=== PATIENT | female | born 1995 | race African-American/Black ===

== ENCOUNTER 2018-03-29 18:29 | Emergency (ER) | payer SELFPAY ==
--- NOTE | 2018-03-29 20:24 | EDM.PDOC ---
ED HPI GENERAL MEDICAL PROBLEM - General Chief Complaint: Headache Stated Complaint: HEADACHE NAUSEA Time Seen by Provider: 03/29/18 20:24 - History of Present Illness INITIAL COMMENTS - FREE TEXT/NARRATIVE: 22-year-old female presents emergency room with 2 specific complaints one is abdominal pain and cramping the second is recurrent headaches. The headaches seem to occur late afternoon early evening she gets 1 or 2 a week she has associated photophobia with these occasionally has some nausea with these. This particular headaches been going on all day. At its worst was about a 7 now is down to about a 5 or 6. She's been getting these for quite a long time. The patient gets abdominal pain that is not related to her headaches. The pain is crampy in nature and is associated with some diarrhea. It comes and goes she is not aware of any stresses. The patient has not been worked up for this she does not have regular doctor in the community. 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 [No Known Home Meds] 03/29/18 [History] Past Medical History Neurological History: Reports: Other (See Below) Other Neuro History: headaches Social & Family History - Tobacco Use Smoking Status *Q: Never Smoker - Caffeine Use Caffeine Use: Reports: Coffee, Soda, Tea - Recreational Drug Use Recreational Drug Use: No ED ROS GENERAL - Review of Systems Review Of Systems: See Below Constitutional: Reports: No Symptoms HEENT: Reports: Other (It sounds like she has some eyestrain) Respiratory: Reports: No Symptoms Cardiovascular: Reports: No Symptoms Endocrine: Reports: No Symptoms GI/Abdominal: Reports: Abdominal Pain, Diarrhea, Nausea. Denies: Anorexia, Black Stool, Bloody Stool, Constipation, Decreased Appetite, Difficulty Swallowing, Distension, Vomiting (Nausea is related to her headaches) : Reports: No Symptoms Musculoskeletal: Reports: No Symptoms Skin: Reports: No Symptoms Neurological: Reports: Dizziness, Headache. Denies: Confusion, Numbness Psychiatric: Reports: No Symptoms Hematologic/Lymphatic: Reports: No Symptoms - Physical Exam Exam: See Below Exam Limited By: No Limitations General Appearance: Alert, No Apparent Distress Eye Exam: Bilateral Eye: EOMI, Normal Inspection, PERRL Ears: Normal External Exam, Normal Canal, Hearing Grossly Normal, Normal TMs Nose: Normal Inspection, Normal Mucosa, No Blood Throat/Mouth: Normal Inspection, Normal Lips, Normal Teeth, Normal Gums, Normal Oropharynx, Normal Voice, No Airway Compromise Head Exam: Atraumatic, Normocephalic Neck: Normal Inspection, Supple, Non-Tender, Full Range of Motion Respiratory/Chest: No Respiratory Distress, Lungs Clear, Normal Breath Sounds, No Accessory Muscle Use, Chest Non-Tender Cardiovascular: Normal Peripheral Pulses, Regular Rate, Rhythm, No Edema, No Gallop, No JVD, No Murmur, No Rub GI/Abdominal: Normal Bowel Sounds, Soft, Tender (Vague discomfort no rigidity rebound or guarding). No: No Abnormal Bruit Neuro Exam (Abbreviated): Alert, Oriented, Normal Cognition, Other (Cranial nerves II through XII grossly intact all muscle groups the upper lower extremities recall appropriate bilaterally deep tendon reflexes the brachial radialis are equal and appropriate bilaterally cerebellar testing is entirely within normal limits) Back Exam: Normal Inspection, Full Range of Motion. No: CVA Tenderness (L), CVA Tenderness (R) Extremities: Normal Inspection, Normal Range of Motion Psychiatric: Normal Affect, Normal Mood Skin Exam: Warm, Dry, Intact, Normal Color Course - Vital Signs Last Recorded V/S: Last Vital Signs Temp 37.4 C 03/29/18 18:56 Pulse 123 H 03/29/18 18:56 Resp 20 03/29/18 18:56 BP 143/88 H 03/29/18 18:56 Pulse Ox 100 03/29/18 18:56 - Orders/Labs/Meds Labs: Laboratory Tests 03/29/18 03/29/18 03/29/18 Range/Units 20:55 20:55 21:08 WBC 9.55 (3.98-10.04) K/mm3 RBC 5.48 H (3.98-5.22) M/mm3 Hgb 10.2 L (11.2-15.7) gm/L Hct 34.6 (34.1-44.9) % MCV 63.1 L (79.4-94.8) fl MCH 18.6 L (25.6-32.2) pg MCHC 29.5 L (32.2-35.5) g/dl RDW Std Deviation 44.3 (36.4-46.3) fL Plt Count 628 H (182-369) K/mm3 MPV 9.6 (9.4-12.3) fl Neutrophils % (Manual) 51 (40-60) % Band Neutrophils % 0 (0-10) % Lymphocytes % (Manual) 46 H (20-40) % Atypical Lymphs % 0 % Monocytes % (Manual) 3 (2-10) % Eosinophils % (Manual) 0 L (0.7-5.8) % Basophils % (Manual) 0 L (0.1-1.2) Platelet Estimate Increased Plt Morphology Comment See note Hypochromasia 1+ slight Poikilocytosis 1+ slight Microcytosis 1+ slight Ovalocytes 1+ slight RBC Morph Comment Not Reportable Sodium 139 (136-145) mEq/L Potassium 4.0 (3.5-5.1) mEq/L Chloride 105 (98-107) mEq/L Carbon Dioxide 23 (21-32) mEq/L Anion Gap 15.0 (5-15) BUN 10 (7-18) mg/dL Creatinine 0.7 (0.55-1.02) mg/dL Est Cr Clr Drug Dosing 128.24 mL/min Estimated GFR (MDRD) > 60 (>60) mL/min BUN/Creatinine Ratio 14.3 (14-18) Glucose 88 (74-106) mg/dL Calcium 9.5 (8.5-10.1) mg/dL Total Bilirubin 0.2 (0.2-1.0) mg/dL AST 22 (15-37) U/L ALT 27 (14-59) U/L Alkaline Phosphatase 75 (46-116) U/L Total Protein 9.0 H (6.4-8.2) g/dl Albumin 3.8 (3.4-5.0) g/dl Globulin 5.2 gm/dL Albumin/Globulin Ratio 0.7 L (1-2) Lipase 150 (73-393) U/L Urine Color Yellow (Yellow) Urine Appearance Cloudy H (Clear) Urine pH 7.5 (5.0-8.0) Ur Specific [place] > or = 1.030 (1.005-1.030) Urine Protein Negative (Negative) Urine Glucose (UA) Negative (Negative) Urine Ketones Negative (Negative) Urine Occult Blood Negative (Negative) Urine Nitrite Negative (Negative) Urine Bilirubin Negative (Negative) Urine Urobilinogen 1.0 (0.2-1.0) Ur Leukocyte Esterase Negative (Negative) Urine RBC 0-5 (0-5) /hpf Urine WBC 0-5 (0-5) /hpf Ur Epithelial Cells 5-10 H (0-5) /hpf Amorphous Sediment Many H (NOT SEEN) /hpf Urine Bacteria Few (FEW) /hpf Urine Mucus Few (FEW) /hpf Urine HCG, Qual (NEGATIVE) 03/29/18 Range/Units 21:15 WBC (3.98-10.04) K/mm3 RBC (3.98-5.22) M/mm3 Hgb (11.2-15.7) gm/L Hct (34.1-44.9) % MCV (79.4-94.8) fl MCH (25.6-32.2) pg MCHC (32.2-35.5) g/dl RDW Std Deviation (36.4-46.3) fL Plt Count (182-369) K/mm3 MPV (9.4-12.3) fl Neutrophils % (Manual) (40-60) % Band Neutrophils % (0-10) % Lymphocytes % (Manual) (20-40) % Atypical Lymphs % % Monocytes % (Manual) (2-10) % Eosinophils % (Manual) (0.7-5.8) % Basophils % (Manual) (0.1-1.2) Platelet Estimate Plt Morphology Comment Hypochromasia Poikilocytosis Microcytosis Ovalocytes RBC Morph Comment Sodium (136-145) mEq/L Potassium (3.5-5.1) mEq/L Chloride (98-107) mEq/L Carbon Dioxide (21-32) mEq/L Anion Gap (5-15) BUN (7-18) mg/dL Creatinine (0.55-1.02) mg/dL Est Cr Clr Drug Dosing mL/min Estimated GFR (MDRD) (>60) mL/min BUN/Creatinine Ratio (14-18) Glucose (74-106) mg/dL Calcium (8.5-10.1) mg/dL Total Bilirubin (0.2-1.0) mg/dL AST (15-37) U/L ALT (14-59) U/L Alkaline Phosphatase (46-116) U/L Total Protein (6.4-8.2) g/dl Albumin (3.4-5.0) g/dl Globulin gm/dL Albumin/Globulin Ratio (1-2) Lipase (73-393) U/L Urine Color (Yellow) Urine Appearance (Clear) Urine pH (5.0-8.0) Ur Specific [place] (1.005-1.030) Urine Protein (Negative) Urine Glucose (UA) (Negative) Urine Ketones (Negative) Urine Occult Blood (Negative) Urine Nitrite (Negative) Urine Bilirubin (Negative) Urine Urobilinogen (0.2-1.0) Ur Leukocyte Esterase (Negative) Urine RBC (0-5) /hpf Urine WBC (0-5) /hpf Ur Epithelial Cells (0-5) /hpf Amorphous Sediment (NOT SEEN) /hpf Urine Bacteria (FEW) /hpf Urine Mucus (FEW) /hpf Urine HCG, Qual Negative (NEGATIVE) Meds: Medications Discontinued Medications Generic Name Dose Route Start Last Admin Trade Name Beatrice PRN Reason Stop Dose Admin Diphenhydramine HCl 50 mg 03/29/18 20:41 03/29/18 21:12 Benadryl IVPUSH 03/29/18 20:42 50 mg ONETIME ONE Administration Lactated Ringer's 1,000 mls @ 999 mls/hr 03/29/18 20:41 03/29/18 21:11 Ringers, Lactated IV 03/29/18 21:41 999 mls/hr .BOLUS ONE Administration Ondansetron HCl 4 mg 03/29/18 20:41 03/29/18 21:11 Zofran IVPUSH 03/29/18 20:42 4 mg ONETIME ONE Administration - Re-Assessments/Exams Free Text/Narrative Re-Assessment/Exam: 03/29/18 22:28 Laboratory evaluation shows an anemia but no real significant issues the patient received some IV fluids Benadryl and Zofran her headache is gone. She is advised to go home and get some rest and follow-up with a local physician discussed her anemia her abdominal discomfort that is very suggestive of irritable bowel syndrome with diarrhea, and her headaches Departure - Departure Time of Disposition: 22:28 Disposition: Home, Self-Care 01 Clinical Impression: Generalized headaches, Abdominal discomfort, Anemia - Discharge Information Referrals: PCP,None [Primary Care Provider] - Forms: ED Department Discharge Additional Instructions: Return to the emergency room with any questions problems worsening symptoms. Follow-up and establish with a new doctor here in the community. [phone] your anemia, headaches and abdominal discomfort.
[2018-03-29] MEDS ORDERED: Ondansetron 4 MG/2 ML SDV IVPUSH ONE (20:41)
[2018-03-29] MEDS ORDERED: Lactated Ringers 1,000 ML IV ONE (20:41)
[2018-03-29] MEDS ORDERED: diphenhydrAMINE 50 MG/ML SDV IVPUSH ONE (20:41)
== END 2018-03-29 22:41 | disposition home or self-care (01) ==
LOC: JD.ED 18:29
DX: R51 Headache (principal); R10.9 Unspecified abdominal pain; D64.9 Anemia, unspecified
CPT/HCPCS: 36415; 80053; 81001; 81025; 83690; 85007; 85027; 96361; 96374; 96375; 99284; J1200; J2405; J7120

== ENCOUNTER 2019-03-23 01:12 | Emergency (ER) | payer BC, OTHER ==
[2019-03-23] MEDS ORDERED: Alum Hydrox/Mag Hydrox/Simeth 30 ML, Lidocaine 2% 15 ML PO ONE ×2 (01:57)
--- NOTE | 2019-03-23 01:57 | EDM.PDOC ---
ED HPI GENERAL MEDICAL PROBLEM - General Chief Complaint: Chest Pain Stated Complaint: CHEST PAIN Time Seen by Provider: 03/23/19 01:47 - History of Present Illness INITIAL COMMENTS - FREE TEXT/NARRATIVE: 23-year-old female presents the emergency room with upper abdominal discomfort and chest pain. Patient has discomfort in her upper abdomen in the epigastric area. She also has some discomfort in the lower chest just above this this worsened with deep breathing. She is tried ibuprofen this did not help patient is never had problems like this in the past her past medical history is significant for iron deficiency anemia and she is on iron supplements. Abdomen Pain Score (Numeric/FACES): 7 - Related Data Allergies Allergy/AdvReac Type Severity Reaction Status Date / Time No Known Allergies Allergy Verified 03/23/19 01:25 Home Meds: Home Meds . [No Known Home Meds] 03/29/18 [History] . [No Known Home Meds] 09/30/18 [History] Past Medical History Gastrointestinal History: Reports: Irritable Bowel Syndrome Neurological History: Reports: Migraines, Other (See Below) Other Neuro History: headaches Hematologic History: Reports: Anemia Social & Family History - Tobacco Use Smoking Status *Q: Never Smoker - Caffeine Use Caffeine Use: Reports: None - Recreational Drug Use Recreational Drug Use: No ED ROS GENERAL - Review of Systems Review Of Systems: See Below Constitutional: Reports: No Symptoms HEENT: Reports: No Symptoms Respiratory: Reports: No Symptoms Cardiovascular: Reports: Chest Pain GI/Abdominal: Reports: Abdominal Pain. Denies: Anorexia, Constipation, Diarrhea , Nausea, Vomiting : Reports: No Symptoms Musculoskeletal: Reports: No Symptoms ED EXAM, GENERAL - Physical Exam Exam: See Below Exam Limited By: No Limitations General Appearance: Alert, No Apparent Distress Head: Atraumatic, Normocephalic Neck: Normal Inspection, Supple, Non-Tender, Full Range of Motion Respiratory/Chest: No Respiratory Distress, Lungs Clear, Normal Breath Sounds, Other (To the chest wall does not reveal any discomfort over the sternum lateral chest compression does not make the pain any worse.) Cardiovascular: Regular Rate, Rhythm, No Edema, No Murmur GI/Abdominal: Normal Bowel Sounds, Soft, Other (Significant discomfort with palpation in the epigastric area no other palpable discomfort identified. No rigidity rebound or guarding noted) Course - Vital Signs Last Recorded V/S: Last Vital Signs Temp 36.9 C 03/23/19 01:21 Pulse 92 03/23/19 01:21 Resp 18 03/23/19 01:21 BP 137/90 03/23/19 01:21 Pulse Ox 100 03/23/19 01:21 - Orders/Labs/Meds Orders: Active Orders 24 hr Category Date Time Status EKG Documentation Completion [RC] ASDIRECTED Care 03/23/19 01:38 Active Meds: Medications Discontinued Medications Generic Name Dose Route Start Last Admin Trade Name Beatrice PRN Reason Stop Dose Admin Al Hydroxide/Mg Hydroxide 30 0 ml 03/23/19 01:57 03/23/19 02:11 ml/ Lidocaine HCl 15 ml PO 03/23/19 01:58 45 ml ONETIME ONE Administration Famotidine 20 mg 03/23/19 03:06 Pepcid PO 03/23/19 03:07 ONETIME ONE - Re-Assessments/Exams Free Text/Narrative Re-Assessment/Exam: 03/23/19 03:12 Patient was given a GI cocktail and her pain got significantly better. Discussed different treatment options with the patient and she would like to try famotidine. She will take it twice daily for 1 week then 1 daily. Departure - Departure Time of Disposition: 03:13 Disposition: Home, Self-Care 01 Clinical Impression: Dyspepsia - Discharge Information Referrals: Arlen Saravia MD [Primary Care Provider] - Forms: ED Department Discharge Additional Instructions: Return to the emergency room with any questions problems or worsening symptoms. Go to [facility] and forklift picker some famotidine, this is the generic for Pepcid, take 20 mg twice a day for 1 week then take 1 daily in the morning 30 to 60 minutes before your morning meal. While taking it twice a day also take it 30 to 60 minutes before your evening meal. Follow-up with your regular physician in 1 week Sepsis Event Note - Evaluation Sepsis Screening Result: No Definite Risk - Focused Exam Vital Signs: Vital Signs Temp Pulse Resp BP Pulse Ox 03/23/19 01:21 36.9 C 92 18 137/90 100 Date Exam was Performed: 03/23/19 Time Exam was Performed: 03:09 - My Orders Last 24 Hours: My Active Orders 03/23/19 01:38 EKG Documentation Completion [RC] ASDIRECTED - Assessment/Plan Last 24 Hours: My Active Orders 03/23/19 01:38 EKG Documentation Completion [RC] ASDIRECTED
[2019-03-23] MEDS ORDERED: Famotidine 20 MG Tab PO ONE (03:06)
== END 2019-03-23 03:26 | disposition home or self-care (01) ==
LOC: JD.ED 01:12
DX: R10.13 Epigastric pain (principal)
CPT/HCPCS: 93005; 99284; A9270; 93010; 99283